=== PATIENT | female | born 1960 | race Two or more races ===

== ENCOUNTER 2024-04-20 10:55 | Emergency (ER) | payer OTHER ==
[~2024-04-20] VITALS: Ht 157.5 cm; Wt 54.5 kg
[2024-04-20 11:20] VITALS: PULSE 67; RESP 12; O2SAT 98
[2024-04-20] MEDS: levETIRAcetam 500 MG TAB PO ONE (11:39)
[2024-04-20 11:58] LABS: Basophils # (auto) 0 10 ^3/uL (0-0.2); Basophils % (auto) 0.4 % (0.0-2.0); Eosinophils # (auto) 0 10 ^3/uL (0-0.8); Eosinophils % (auto) 0.1 % (0.0-7.0); Hemoglobin 13.8 g/dL (12.2-16.2); Lymphocytes # (auto) 0.9 10 ^3/uL (0.4-5.4); Lymphocytes % (auto) 18.6 % (10.0-50.0); Mean Corpuscular Hemoglobin 30.8 pg (28.0-32.0); Mean Corpuscular Hgb Conc. 33.7 g/dL (32.0-36.0); Mean Corpuscular Volume 91.2 fL (80.0-100.0); Monocytes # (auto) 0.4 10 ^3/uL (0-1.3); Monocytes % (auto) 8.3 % (0.0-12.0); Neutrophils # (auto) 3.4 10 ^3/uL (1.6-8.6); Neutrophils % (auto) 72.6 % (37.0-80.0); Platelet Count (auto) 273 10^3/uL (140-450); Red Cell Distribution Width 13.7 % (11.8-14.3); White Blood Cell 4.7 10^3/uL (4.4-10.8)
[2024-04-20 12:10] LABS: Anion Gap 6 (5-15); Carbon Dioxide 27 mmol/L (20-31); Chloride 104 mmol/L (98-107); Potassium 4.3 mmol/L (3.5-5.1); Sodium 137 mmol/L (136-145)
[2024-04-20 12:11] LABS: Calcium 9.8 mg/dL (8.7-10.4)
[2024-04-20 12:16] LABS: BUN/Creatinine Ratio 17.4 (10.0-20.0); Blood Urea Nitrogen 15 mg/dL (9-23); Glucose 101 mg/dL (74-106)
[2024-04-20 17:00] VITALS: BP 115/76; PULSE 85; RESP 16; TEMP 97.9; O2SAT 96
[2024-04-20] MEDS: NEOMYCIN-BACITRACIN-POLYM 15GM TOP OINT TOP SCH (18:06)
[2024-04-20] MEDS: HYDROcodone-ACET 5/325MG TAB PO ONE (18:06)
== END 2024-04-20 18:10 | disposition home or self-care (01) ==
LOC: EDBD 10:55 → ER 10:55
DX: S01.111A Laceration without foreign body of right eyelid and periocular area, initial encounter (principal); R56.9 Unspecified convulsions; M54.2 Cervicalgia; M25.521 Pain in right elbow; I10 Essential (primary) hypertension; W18.09XA Striking against other object with subsequent fall, initial encounter; Y93.89 Activity, other specified; Y92.89 Other specified places as the place of occurrence of the external cause; Y99.8 Other external cause status
CPT/HCPCS: 12013; 36415; 70450; 71045; 72125; 73070; 80048; 82542; 84484; 85025; 93005